=== PATIENT | male | born 1960 ===

== ENCOUNTER 2017-08-04 12:36 | Outpatient (CLI) | payer OTHER ==
[~2017-08-04] VITALS: Ht 172.7 cm; Wt 99.0 kg
[2017-08-04] MEDS ORDERED: PROAIR HFA0.09 MG/AC IH (13:07)
[2017-08-04] MEDS ORDERED: ASPIRIN 81M81 MG/TA2 PO (13:07)
[2017-08-04] MEDS ORDERED: COGENTIN .0.5 MG/TAB PO (13:08)
[2017-08-04] MEDS ORDERED: 00186-0370-20 IH (13:09)
[2017-08-04] MEDS ORDERED: PROSCAR 5MG5 MG PO (13:10)
[2017-08-04] MEDS ORDERED: FLOVENT DI50 MCG/Act IH (13:11)
[2017-08-04] MEDS ORDERED: NEURONTIN300 MG/CAP PO (13:12)
[2017-08-04] MEDS ORDERED: HYDROCORTISON28.4 GM TP (13:12)
[2017-08-04] MEDS ORDERED: MOTRIN 600600 MG/TAB PO (13:13)
[2017-08-04] MEDS ORDERED: ATIVAN 1MG T1 MG/TAB PO (13:14)
[2017-08-04] MEDS ORDERED: GLUCOPHAGE500 MG/TAB PO (13:15)
[2017-08-04] MEDS ORDERED: PRILOSEC 20MG20 MG PO (13:15)
[2017-08-04] MEDS ORDERED: TRILAFON8 MG (13:17)
[2017-08-04] MEDS ORDERED: TRILEPTAL600 MG PO (13:17)
[2017-08-04] MEDS ORDERED: TRILAFON8 MG PO (13:18)
[2017-08-04] MEDS ORDERED: PRAVACHOL 40MG40 MG PO (13:19)
[2017-08-04] MEDS ORDERED: GOOD NEIGH3.4 GM/Dos PO (13:20)
[2017-08-04] MEDS ORDERED: VALTREX1 GM PO (13:21)
[2017-08-04] MEDS ORDERED: EFFEXOR XR75 MG/CAP PO (13:22)
[2017-08-04] MEDS ORDERED: NOVLOG SQ (13:23)
[2017-08-04] MEDS ORDERED: MULTI VITAMINS1 TAB PO (13:25)
[2017-08-04] MEDS ORDERED: LANTUS100 U/ML SQ (13:25)
[2017-08-04] MEDS ORDERED: JANUVIA 100MG100 MG PO (13:26)
[2017-08-04] MEDS ORDERED: SINGULAIR 110 MG/TAB PO (13:28)
[2017-08-04] MEDS ORDERED: ZYRTEC 10MG10 MG PO (13:28)
[2017-08-04 13:30] VITALS: BP 113/73; PULSE 78
[2017-08-04 14:30] VITALS: BP 126/77; PULSE 88; PULSE 96
[2017-08-04 14:45] VITALS: BP 132/80; PULSE 90
[2017-08-04 15:00] VITALS: BP 132/82; PULSE 92
[2017-08-04 15:06] LABS: GLUCOSE,CSF 57 mg/dL (40-70); TOTAL PROTEIN,CSF 33 mg/dL (15-45)
[2017-08-04 15:45] VITALS: BP 136/96; PULSE 87
[2017-08-04 15:53] LABS: CSF APPEARANCE CLEAR; CSF COLOR COLORLESS; CSF MONONUCLEAR 66 % (70-100); CSF POLYMORPHONUCLEAR 33 % (0-6); CSF RBC 35 /mm3 (0-0)
[2017-08-09 10:47] LABS: ALBUMIN CSF 12.8 mg/dL (<=27.0); CSF IGG/ALBUMIN 0.13 (<=0.21); CSF,IGG 1.6 mg/dL (<=8.1)
[2017-08-09 10:59] LABS: CSF-IGG INDEX 0.54 (<=0.85); IGG/ALBUMIN SERUM 0.24 (<=0.40)
== END 2017-08-04 15:47 | disposition home or self-care (01) ==
LOC: COL.RAD 12:36
PROVIDERS: Psychiatry & Neurology Neurology
DX: G37.9 Demyelinating disease of central nervous system, unspecified (principal)